=== PATIENT | male | born 1955 | race Caucasian/White ===

== ENCOUNTER 2021-09-19 08:36 | Emergency (ER) | payer OTHER ==
[~2021-09-19] VITALS: Ht 180.3 cm; Wt 86.2 kg
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
--- NOTE | 2021-09-19 08:56 | NUR ---
SEEN AND EXAMINED BY .
[2021-09-19] MEDS ORDERED: HYDROCODONE/APAP 5/325MG TABLET ONE (08:59)
[2021-09-19] MEDS ORDERED: BACITRACIN ZINC OINT PACKET 1 EA PACKET TP ONE (09:00)
[2021-09-19] MEDS ORDERED: LIDOCAINE 1% INJ 50 ML MDV IJ ONE (09:00)
[2021-09-19] MEDS ORDERED: HYDROCODONE/APAP 5/325MG TABLET PO ONE (09:00)
[2021-09-19] MEDS ORDERED: LIDOCAINE /MPF 1% VIAL 5 ML VIAL ONE (09:00)
[2021-09-19] MEDS ORDERED: NALO4SPR BNOSTRILS (09:18)
[2021-09-19] MEDS ORDERED: SULF1TAB48 PO (09:18)
[2021-09-19] MEDS ORDERED: CEPH500T PO (09:18)
--- NOTE | 2021-09-19 09:29 | NUR ---
AT BEDSIDE FOR I AND D.
[2021-09-19] MEDS ORDERED: IBUP-1955 PO (09:42)
--- NOTE | 2021-09-19 10:04 | NUR ---
Patient discharged to home in stable condition. Written and verbal after care instructions given. Patient verbalizes understanding of instruction. Patient provided with bus pass and breakfast.
[2021-09-19 10:18] VITALS: BP 134/80
[2021-09-20] MEDS ORDERED: NALO4SPR BNOSTRILS (10:19)
[2021-09-20] MEDS ORDERED: SULF1TAB48 PO (10:19)
[2021-09-20] MEDS ORDERED: IBUP-1955 PO (10:19)
[2021-09-20] MEDS ORDERED: CEPH500T PO (10:19)
== END 2021-09-19 10:18 | disposition home or self-care (01) ==
LOC: ER 08:44
DX: L02.31 Cutaneous abscess of buttock (principal); I10 Essential (primary) hypertension; F19.10 Other psychoactive substance abuse, uncomplicated; Z60.2 Problems related to living alone; Z79.899 Other long term (current) drug therapy
CPT/HCPCS: 10060; 99283; A6403; A6407 ×2; J3490

== ENCOUNTER 2021-09-20 09:26 | Emergency (ER) | payer OTHER ==
[~2021-09-20] VITALS: Ht 180.3 cm; Wt 86.2 kg
[~2021-09-20 09:26] MED LIST: CEPH500T PO; IBUP-1955 PO; NALO4SPR BNOSTRILS; SULF1TAB48 PO
[2021-09-20 09:27] VITALS: BP 143/83
--- NOTE | 2021-09-20 10:16 | NUR ---
DRESSING CHANGED BY DIE FORGER.
[2021-09-20] MEDS ORDERED: CEPH500T PO (10:19)
[2021-09-20] MEDS ORDERED: NALO4SPR BNOSTRILS (10:19)
[2021-09-20] MEDS ORDERED: SULF1TAB48 PO (10:19)
[2021-09-20] MEDS ORDERED: IBUP-1955 PO (10:19)
--- NOTE | 2021-09-20 10:23 | NUR ---
Patient discharged to home in stable condition. Written and verbal after care instructions given. Patient verbalizes understanding of instruction.
== END 2021-09-20 10:24 | disposition home or self-care (01) ==
LOC: ER 09:32
DX: L02.31 Cutaneous abscess of buttock (principal); Z48.00 Encounter for change or removal of nonsurgical wound dressing; I10 Essential (primary) hypertension; Z60.2 Problems related to living alone; Z79.899 Other long term (current) drug therapy

== ENCOUNTER 2021-09-22 13:24 | Emergency (ER) | payer OTHER ==
[~2021-09-22] VITALS: Ht 180.3 cm; Wt 86.2 kg
[2021-09-22 13:24] VITALS: BP 126/73
[2021-09-22] MEDS ORDERED: HYDROCODONE/APAP 5/325MG TABLET PO ONE (14:00)
[2021-09-22] MEDS ORDERED: BACITRACIN ZINC OINT PACKET 1 EA PACKET TP ONE (14:00)
--- NOTE | 2021-09-22 14:00 | NUR ---
DRESSING DONE AT THE [facility] WOUND
[2021-09-22] MEDS ORDERED: HYDROCODONE/APAP 5/325MG TABLET ONE (14:44)
--- NOTE | 2021-09-22 14:54 | NUR ---
SS Consult: SS Consult requested for safe discharge planning. The pt. is a 66 -year old male who presents to the ED with C/O abscess. MELISSA met with pt. at bedside. The pt. appears unkempt, is A&O X4 and makes avoidant eye contact. Pt.'s has anxious mood & affect. The pt. asked if he can get taxi voucher as it is difficult for him to walk. MELISSA explored pt.'s living situation. Pt. states he resides at home [[address] [facility] [address]]. SW explored pt.'s mental health Hx. Pt. states she has been diagnosed with Schizophrenia. Pt. denies SI/HI and states he has intermittent auditory hallucinations that are not commanding voices. SW offered mental health services and pt. accepted them. Pt. states he is ambulatory and independent with his ADL's. SW explored pt.'s support system. Pt. states he has no support system. Plan: SW provided taxi voucher and pt. will be discharged to home[[address] [facility] [address]] . Patient thanked MELISSA. SW provided patient with elderly resources and mental health resources and pt. accepted them. ABUSE PREVENTION: ELDER ABUSE HOTLINE (20/12) ADULT PROTECTIVE SERVICES HOTLINE LONG-TERM CARE [facility] - sfv Region AREA ON AGING (HOTLINE) ADULT DAY HEALTH CARE CARE CENTERS: Private pay or [facility] funded adult day care [facility] Adult Day Health Care [facility] , [facility] Services , [facility] Adult Care Center , [facility] Adult Day Health Care , [facility] Adult Day Health Care , [facility] Adult Daycare Center , [facility] , [facility] Adult [facility] , [place] ALZHEIMER'S DISEASE/DEMENTIA: Alzheimer's Association Helpline [facility] Chapter www.alz.org/[facility] Department of Aging www.lacity.org Family Caregiver [place] www.caregiver.org [place] Caregiver Resources Center/Family Support www.lifepoint hospitalsangehealthsouth [facility].org CANCER RESOURCES: [place] Cancer Society www.cancer.org Cancer Support Community www.CancerSupportVvsb.org: CancerCare www.cancercare.org [facility] Cancer Support [place] www.[facility].org [facility] HEALTH ASSOCIATIONS: AARP www.aarp.org ALS Association (ask for Lisseth) www.als.org [place] Diabetes Association www.diabetes.org [place] Heart Association www.heart.org [place] Lung Association www.lungusa.org [place] Parkinson Disease Association www.apdaparkinson.org [place] Leander , www.redcross.org Arthritis Foundation www.arthritis.org Crohn's & Colitis Foundation of [place] www.ccfa.org/chapters/dmitry National Multiple Sclerosis Society www.nationalmssociety.org Myasthenia Gravis Foundation www.myasthenia-ca.org National Stroke Association www.stroke.org CONSERVATORSHIP & GUARDIANSHIP: AARP Luz Anaya Legal Services Center for Health Care Rights Eldercare Information and Referral Furniture Upholsterer Apprentice [facility]: [facility] Bar Referral Service [facility] Neighborhood Legal Services Office of the Public Guardian Provencal EYESIGHT DISORDER RESOURCES: [place] Macular Degeneration Foundation [facility] www.[facility].org GRIEF AND BEREAVEMENT RESOURCES: The [place] , [facility] THE HOPE Connection , [facility] Bereavement Center , [place] HEARING DISORDER RESOURCES: [place] Telephone Access Program Deaf and Disabled Telecommunications Program www.ddtp.[facility].ca.gov HearRx Hearing Centers (Bulger) Better Hearing Systems , [place] GLAD ([facility] Agency on Deafness) V/ TTY; Gun Profiler , [facility] Hearing [facility] -low income hearing aid assistance www.Forest2Marketberger hospitalringfoundation.org [place] [facility] , [place] HELP AT HOME - CAREGIVER SUPPORT: In Home Support Services (Must have Medi-Zahira to be eligible) *Ask for a list of agencies that provide services to assist with care in the home. Local Senior Centers also have listings of care providers. HOME SAFETY MODIFICATIONS AND EQUIPMENT: Senior centers have additional referrals. [place] Housing and Community Investment Dept. Handyworker Program (low income) or Visit http://hcidla.lacity.org/dgo-vqylkd-sk for more information National Seating and Mobility and/or ; Forever Active www.foreveractivemed.com Stay Home Safe www.Stayhomesafe.com LIFE ALERT RESPONSE SYSTEM: blogfoster Services 343-995-1762 www. m0um0u.Nutricate Life Alert 853-058-9364 www.Saygus.Nutricate Life Station 249-300-4911 www.BangTango.Nutricate Safe Return 199-269-6452 www.alz.or/safereturn Cell Phones for Seniors www.NanoVasc MEALS AND FOOD PROGRAMS: [place] Meals on Wheels [phone] Plain Meals on Wheels [phone] [facility] [phone] [place] to the Homebound [phone] [place] to the Homebound [phone] [facility] to the Homebound [phone] [facility] to the Homebound [phone] [facility] [phone] [facility] [phone] ONE Generation [phone] [facility] [phone] [facility] [phone] Meals on Wheels [phone] For all ages: $6.85/ meal w side. Delivered M-F from 10 am-1pm. Application and payment is done over the phone. Frozen meals available for weekends. Emergency Food [facility] [phone] [facility] Sprinkler Fitter Helper [phone] [facility] [phone] [facility] [address]- Brown bag lunches [phone] [facility] [phone] MEAL/GROCERY DELIVERY PROGRAMS: Jesica's Senior Gourmet Meals [phone]- [facility] [phone]- [facility] Farm Magic Kitchen [phone] Mom's Meals [phone] (ask [place] for Discount Select grocery stores may provide delivery. MEDICAL INSURANCE SUPPORT SERVICES: Center for Health Care Rights [phone] Health Insurance Counseling/Advocacy Programs (HICAP)-Must have Medicare. Offers counseling for Medi-Zahira eligibility [phone] Department of Public Sprinkler Fitter Helper 772-107-2647 www.[facility].ca.gov Medicare 246-722-0187 www.socialsecurity.org Social Security [phone] SENIOR ACTIVITY PROGRAMS: *Contact a local senior center, adult school, recreation facility or community college for education, fitness, recreation, and social programs. Aquatic Therapy and Adapted Exercise programs through [facility] [phone] Encore at [facility] 336-244-5426 www.[facility]/encore U- Senior Friends [phone] [place] Senior Programs 281-244-5071 www.oasisnet.org Suddenly 65 www.jhkntysh72.com SENIOR CENTERS: [facility] [phone] [facility] [phone] [facility] [phone] [facility] [phone] [facility] [phone] [facility] [phone] [facility] [phone] [facility] [phone] [facility] [phone] [facility] [phone] [facility] [phone] [facility] [phone] TRANSPORTATION: Local [facility] may have applications for transportation programs and additional resources. ACCESS Services [phone] Transportation for seniors and disabled persons 7 days a week requiring 254 hr. advance reservation. Must apply and register for program steve eligible. iWOPI RIDE [phone] or [phone] Transportation for seniors and persons with ADA card/metro disabled card in the [facility]. M-F only. Must register for services. ONE GENERATION [phone] Serves 65 years + in conjunction with city ride program. Must be registered with both programs. A to B Transport [phone] Provides wheelchair/gurney van service. Adult Medical Transport [phone] Accepts Medi-zahira with prior authorization. Care Van [phone] Provides wheelchair Transport. [facility] Wide Transportation [phone] Provides gurney service Gentle Care [phone] Gurney Transport. All Town Transportation [phone] wheelchair & gurney transport D Transportation [phone] wheelchair & gurney transport [place] Non-Emergency Transport [phone] wheelchair & gurney transport Independent Living Center [phone] Short Term Transportation primarily for adults with disabilities on social security income. Nominal fee may apply and a reservation is required. [facility] Cab [phone] or [phone] Focus Mediai [phone] [place] [address] Services -[phone] For additional programs & services VETERANS RESOURCES: Submissions for Aid and Attendance should be done directly to [facility] office locatd at : [facility] [address] [facility]. [facility] [phone] National Caregiver Support Line [phone] [facility] Veterans Services Field Office [phone] [place] Department of [place] Affairs [phone] Pension Information [phone] Counseling--Outpatient [facility] [address], [place] [address] (Specializes in in-depth psychotherapy for emotional distress: anxiety, depression, interpersonal conflicts, life transitions, childhood abuse) [facility] [address] [place] [address] (Assist with solving problem marital difficulties, separation & divorce, aging parents, & grief, chronic & terminal illness) [facility] [address] [place] [address] (Deal with loss & grief, anxiety, marital difficulties) Homebound/Mental Health Services [address] [facility], [address] [place], [place] [address] (Provide in-home mental services to people who are incapable of leaving their homes) Organization for Needs of the Elderly Senior Service/Resource Center [address] [place], [place] [phone]
--- NOTE | 2021-09-22 14:59 | NUR ---
Patient discharged to home in stable condition. Written and verbal after care instructions given. Patient verbalizes understanding of instruction.
== END 2021-09-22 15:00 | disposition home or self-care (01) ==
LOC: ER 13:27
DX: L02.31 Cutaneous abscess of buttock (principal); Z48.00 Encounter for change or removal of nonsurgical wound dressing; I10 Essential (primary) hypertension; Z60.2 Problems related to living alone; Z79.899 Other long term (current) drug therapy
CPT/HCPCS: 99283; A6253